=== PATIENT | male | born 1975 | race Hispanic/Latino ===

== ENCOUNTER 2019-02-17 19:07 | Emergency (ER) | payer SELFPAY ==
[~2019-02-17] VITALS: Ht 165.1 cm; Wt 113.4 kg
--- OUTSIDE RECORDS SUMMARY | 2019-02-17 19:10 | XMS REPORT ---
Author Author [facility] Address Unknown Phone Unavailable Care Team Providers Care Student Support Services Director Name Role Phone Unavailable Unavailable Payers Payer Name Policy Type Policy Number Effective Date Expiration Date Problems This patient has no known problems. Allergies, Adverse Reactions, Alerts Allergy Name Allergy Type Status Severity Reaction(s) Onset Date Inactive Date Treating Clinician Comments No Known Allergies DA Active U 2018-01-02 00:00:00 Medications This patient has no known medications.
[2019-02-17] MEDS ORDERED: MORPHINE SULFATE INJ 4 MG/ML INJ 1ML IV ONE (19:45)
[2019-02-17] MEDS ORDERED: ONDANSETRON HCL INJ 2MG/ML 2ML 2 MG/ML VIAL IV ONE (19:45)
[2019-02-17 20:00] VITALS: BP 162/89
== END 2019-02-17 20:18 | disposition home or self-care (01) ==
LOC: ER 19:07
DX: K42.9 Umbilical hernia without obstruction or gangrene (principal); I10 Essential (primary) hypertension; E11.9 Type 2 diabetes mellitus without complications; F17.200 Nicotine dependence, unspecified, uncomplicated
CPT/HCPCS: 96374; 96375; 99282; J2270; J2405